=== PATIENT | female | born 1990 | race Caucasian/White ===

== ENCOUNTER 2017-02-14 17:38 | Inpatient (IN) | payer BC ==
[2017-02-14] MEDS ORDERED: Sodium Chloride 0.9% 10 ML Syringe FLUSH PRN (17:49)
[2017-02-14] MEDS ORDERED: Nalbuphine 20 MG/1 ML Amp IVPUSH PRN (17:49)
[2017-02-14] MEDS ORDERED: Ondansetron 4 MG/2 ML SDV IVPUSH PRN ×2 (17:49→19:46)
[2017-02-14] MEDS ORDERED: Lactated Ringers 1,000 ML IV SCH (18:00)
[2017-02-14] MEDS ORDERED: ePHEDrine 50 MG/ML SDV IVPUSH PRN (19:46)
[2017-02-14] MEDS ORDERED: fentaNYL 100 MCG/2 ML SDV EPIDUR PRN (19:46)
--- NOTE | 2017-02-14 19:48 | PCM.PREANE ---
Preanesthetic Assessment - Anesthesia/Transfusion/Family Hx Anesthesia History: Prior Anesthesia Without Reaction Family History of Anesthesia Reaction: No Transfusion History: No Prior Transfusion(s) Intubation History: Unknown - Review of Systems General: No Symptoms Pulmonary: No Symptoms Cardiovascular: No Symptoms Gastrointestinal: No Symptoms (gerd) Neurological: No Symptoms Other: Reports: None, Easy Bruising - Physical Assessment NPO Status Date: 02/14/17 NPO Status Time: 18:30 Pulse: 83 O2 Sat by Pulse Oximetry: 99 Respiratory Rate: 16 Blood Pressure: 139/83 Temperature: 36.7 C Vital Signs: Last Vital Signs Temp 36.7 C 02/14/17 17:49 Pulse 83 02/14/17 18:30 Resp 16 02/14/17 17:49 BP 139/83 02/14/17 18:30 Pulse Ox Height: 1.78 m Weight: 117.027 kg ASA Class: 2 Mental Status: Alert & Oriented x3 Airway Class: Mallampati = 2 Dentition: Reports: Normal Dentition, Caries Thyro-Mental Finger Breadths: 3 Mouth Opening Finger Breadths: 3 ROM/Head Extension: Full Lungs: Clear to Auscultation, Normal Respiratory Effort Cardiovascular: Regular Rate, Regular Rhythm, No Murmurs - Lab Values: Laboratory Last Values WBC 8.29 K/mm3 (3.98-10.04) 02/14/17 18:10 RBC 4.29 M/mm3 (3.98-5.22) 02/14/17 18:10 Hgb 12.5 gm/L (11.2-15.7) 02/14/17 18:10 Hct 36.7 % (34.1-44.9) 02/14/17 18:10 MCV 85.5 fl (79.4-94.8) 02/14/17 18:10 MCH 29.1 pg (25.6-32.2) 02/14/17 18:10 MCHC 34.1 g/dl (32.2-35.5) 02/14/17 18:10 RDW Std Deviation 42.6 fL (36.4-46.3) 02/14/17 18:10 Plt Count 238 K/mm3 (182-369) 02/14/17 18:10 MPV 11.2 fl (9.4-12.3) 02/14/17 18:10 Neut % (Auto) 62.6 % (34.0-71.1) 02/14/17 18:10 Lymph % (Auto) 26.8 % (19.3-51.7) 02/14/17 18:10 [place] % (Auto) 9.4 % (4.7-12.5) 02/14/17 18:10 Eos % (Auto) 0.7 (0.7-5.8) 02/14/17 18:10 Baso % (Auto) 0.1 % (0.1-1.2) 02/14/17 18:10 Neut # (Auto) 5.19 K/mm3 (1.56-6.13) 02/14/17 18:10 Lymph # (Auto) 2.22 K/mm3 (1.18-3.74) 02/14/17 18:10 [place] # (Auto) 0.78 K/mm3 (0.24-0.36) H 02/14/17 18:10 Eos # (Auto) 0.06 K/mm3 (0.04-0.36) 02/14/17 18:10 Baso # (Auto) 0.01 K/mm3 (0.01-0.08) 02/14/17 18:10 Above labs reviewed and noted. 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 History: Reports: Musculoskeletal History: Reports: Other (See Below) - Past Surgical History Musculoskeletal Surgical History: Reports: Other (See Below) Other Musculoskeletal Surgeries/Procedures:: left hand surgery following a fracture - SUBSTANCE USE Smoking Status *Q: Never Smoker Second Hand Smoke Exposure: No Recreational Drug Use History: No - HOME MEDS Home Medications: Home Meds Famotidine [Pepcid] 10 mg PO DAILY PRN 02/14/17 [History] Vit W-Ca,Fe,FA(<1 mg) [ Vitamins] 1 each PO DAILY 02/14/17 [ History] - CURRENT (IN HOUSE) MEDS Current Meds: Current Medications Lactated Ringer's (Ringers, Lactated) 1,000 mls @ 100 mls/hr IV ASDIRECTED TATUM Oxytocin 20 unit/ Lactated (Ringer's) 1,002 mls @ 500 mls/hr IV ASDIRECTED TATUM Nalbuphine HCl (Nubain) 10 mg IVPUSH Q2H PRN PRN Reason: Pain (moderate 4-6) Ondansetron HCl (Zofran) 4 mg IVPUSH Q4H PRN PRN Reason: Nausea/Vomiting Sodium Chloride (Saline Flush) 10 ml FLUSH ASDIRECTED PRN PRN Reason: Keep Vein Open
[2017-02-14] MEDS ORDERED: Bupivacaine/fentaNYL/NS 100 ML Bag EPIDUR SCH (20:00)
[2017-02-14] MEDS ORDERED: Oxytocin/Lactated Ringers 20 UNIT/1,000 ML BAG IV ONE (22:14)
[2017-02-14] MEDS ORDERED: Bupivacaine 0.25% 10 ML SDV ONE (22:22)
--- NOTE | 2017-02-14 23:49 | PCM.LDHP ---
L&D History of Present Illness - General Date of Service: 02/14/17 Admit Problem/Dx: Patient Status Order with Admit Dx/Problem 02/14/17 17:50 Patient Status [ADT] Routine Admission Diagnosis/Problem Admission Diagnosis/Problem Normal labor Source of Information: Patient History Limitations: Reports: No Limitations - History of Present Illness Introduction:: 26-year-old 001 JH 02/19/17 presented to labor and delivery with history of ruptured membranes at 1730 hrs. on 02/14/17 at 39 weeks and 2 days estimated gestational age. G group B strep negative. Blood type O-positive antibody screen negative hemoglobin hematocrit 13.4/38.9 platelets 298,000 rubella immune hepatitis B surface antigen -1 hour OB glucose screen 98 admitted for labor and delivery. 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: : 2 Para: 1 (1001) LMP (Approximate): Musculoskeletal History: Reports: Other (See Below) - Past Surgical History Musculoskeletal Surgical History: Reports: Other (See Below) Other Musculoskeletal Surgeries/Procedures:: left hand surgery following a fracture Social & Family History - Family History Family Medical History: Noncontributory - Tobacco Use Smoking Status *Q: Never Smoker Second Hand Smoke Exposure: No - Recreational Drug Use Recreational Drug Use: No H&P Review of Systems - Review of Systems: Review Of Systems: See Below General: Reports: No Symptoms HEENT: Reports: No Symptoms Pulmonary: Reports: No Symptoms Cardiovascular: Reports: No Symptoms Gastrointestinal: Reports: No Symptoms Genitourinary: Reports: No Symptoms Musculoskeletal: Reports: No Symptoms Skin: Reports: No Symptoms Psychiatric: Reports: No Symptoms Neurological: Reports: No Symptoms Hematologic/Lymphatic: Reports: No Symptoms Immunologic: Reports: No Symptoms L&D Exam - Exam Exam: See Below - Vital Signs Vital Signs: Last Vital Signs Temp 98.1 F 02/14/17 20:02 Pulse 83 02/14/17 20:02 Resp 16 02/14/17 20:02 BP 139/83 02/14/17 20:02 Pulse Ox 99 02/14/17 20:02 Weight: 258 lb - OB Specific Fundal Height In cm: 39 Contraction Duration (sec): 60 Contraction Frequency (min): 2 Contraction Intensity: Moderate Movement: Active Heart Tones: Present Heart Tones per Min: 140 Heart Rate (FHR) Variability: Moderate (6-25 bmp) Presentation: Vertex - Main Score Main Score Cervix Position: Posterior Main Score Consistency: Soft Main Score Effacement: 31-50% Main Score Dilation: 3-4 cm Main Score 's Station: -1 ,0 Main Score Total: 7 - Exam General: Alert, Oriented HEENT: Conjunctiva Clear, Mucosa Moist & [place], PERRLA Neck: Supple, Trachea Midline Lungs: Clear to Auscultation, Normal Respiratory Effort Cardiovascular: Regular Rate, Regular Rhythm GI/Abdominal Exam: Normal Bowel Sounds, Soft, Non-Tender, No Organomegaly, No Distention, No Abnormal Bruit Genitourinary: Normal external exam Extremities: Normal Inspection, Normal Range of Motion, Non-Tender, No Pedal Edema, Normal Capillary Refill Skin: Warm, Dry, Intact Neurological: Reflexes Equal Bilateral Psychiatric: Alert, Normal Affect, Normal Mood - Patient Data Lab Results Last 24 hrs: Laboratory Results - last 24 hr 02/14/17 Range/Units 18:10 WBC 8.29 (3.98-10.04) K/mm3 RBC 4.29 (3.98-5.22) M/mm3 Hgb 12.5 (11.2-15.7) gm/L Hct 36.7 (34.1-44.9) % MCV 85.5 (79.4-94.8) fl MCH 29.1 (25.6-32.2) pg MCHC 34.1 (32.2-35.5) g/dl RDW Std Deviation 42.6 (36.4-46.3) fL Plt Count 238 (182-369) K/mm3 MPV 11.2 (9.4-12.3) fl Neut % (Auto) 62.6 (34.0-71.1) % Lymph % (Auto) 26.8 (19.3-51.7) % [place] % (Auto) 9.4 (4.7-12.5) % Eos % (Auto) 0.7 (0.7-5.8) Baso % (Auto) 0.1 (0.1-1.2) % Neut # (Auto) 5.19 (1.56-6.13) K/mm3 Lymph # (Auto) 2.22 (1.18-3.74) K/mm3 [place] # (Auto) 0.78 H (0.24-0.36) K/mm3 Eos # (Auto) 0.06 (0.04-0.36) K/mm3 Baso # (Auto) 0.01 (0.01-0.08) K/mm3 Result Diagrams: 02/14/17 18:10 - Problem List (1) 39 weeks gestation of SNOMED Code(s): 88549126 ICD Code: Z3A.39 - 39 WEEKS GESTATION OF Status: Acute Current Visit: Yes Problem List Initiated/Reviewed/Updated: No Orders Last 24hrs: Active Orders 24 hr Category Date Time Status Patient Status [ADT] Routine ADT 02/14/17 17:50 Active Activity as Tolerated [RC] PFP Care 02/14/17 17:49 Active Communication Order [RC] ASDIRECTED Care 02/14/17 17:49 Active Notify Provider [RC] ASDIRECTED Care 02/14/17 19:46 Active Notify Provider [RC] PFP Care 02/14/17 17:49 Active Notify Provider [RC] PRN Care 02/14/17 17:49 Active Oxygen Therapy [RC] ASDIRECTED Care 02/14/17 19:46 Active Peripheral IV Care [RC] . DIRECTED Care 02/14/17 17:50 Active Pulse Oximetry [RC] ASDIRECTED Care 02/14/17 19:46 Active Vital Signs [RC] PER UNIT ROUTINE Care 02/14/17 17:49 Active Clear Liquid Diet [DIET] Diet 02/14/17 Breakfast Active Bupivacaine/fentaNYL/NS [fentaNYL/Bupivacaine/NS 2 MCG- Med 02/14/17 20:00 Active 0.125% 100 ML] 100 ml EPIDUR ASDIRECTED Lactated Ringers [Ringers, Lactated] 1,000 ml Med 02/14/17 18:00 Active IV ASDIRECTED Nalbuphine [Nubain] Med 02/14/17 17:49 Active 10 mg IVPUSH Q2H PRN Ondansetron [Zofran] Med 02/14/17 19:46 Active 4 mg IVPUSH ONETIME PRN Ondansetron [Zofran] Med 02/14/17 17:49 Active 4 mg IVPUSH Q4H PRN Oxytocin [Pitocin] 20 unit Med 02/14/17 18:00 Active Lactated Ringers [Ringers, Lactated] 1,000 ml IV ASDIRECTED Sodium Chloride 0.9% [Saline Flush] Med 02/14/17 17:49 Active 10 ml FLUSH ASDIRECTED PRN ePHEDrine [ePHEDrine Sulfate] Med 02/14/17 19:46 Active 5 mg IVPUSH ASDIRECTED PRN fentaNYL [Sublimaze] Med 02/14/17 19:46 Active 100 mcg EPIDUR Q3H PRN Electronic Heart Tones Ext w TOCO [WOMSER] Oth 02/14/17 17:49 Ordered Routine Electronic Heart Tones Internal [WOMSER] Per Unit Oth 02/14/17 17:49 Ordered Routine Peripheral IV Insertion Adult [OM.PC] Routine Oth 02/14/17 17:49 Ordered Resuscitation Status Routine Resus Stat 02/14/17 17:49 Ordered Medication Orders Ephedrine Sulfate (Ephedrine Sulfate) 5 mg IVPUSH ASDIRECTED PRN PRN Reason: Hypotension Fentanyl (Sublimaze) 100 mcg EPIDUR Q3H PRN PRN Reason: Pain Last Admin: 02/14/17 20:03 Dose: 100 mcg Fentanyl/Bupivacaine HCl (Fentanyl/Bupivacaine/Ns 2 Mcg-0.125% 100 Ml) 100 ml EPIDUR ASDIRECTED TATUM Last Admin: 02/14/17 20:03 Dose: 100 ml Lactated Ringer's (Ringers, Lactated) 1,000 mls @ 100 mls/hr IV ASDIRECTED TATUM Oxytocin 20 unit/ Lactated (Ringer's) 1,002 mls @ 500 mls/hr IV ASDIRECTED TATUM Nalbuphine HCl (Nubain) 10 mg IVPUSH Q2H PRN PRN Reason: Pain (moderate 4-6) Ondansetron HCl (Zofran) 4 mg IVPUSH Q4H PRN PRN Reason: Nausea/Vomiting Ondansetron HCl (Zofran) 4 mg IVPUSH ONETIME PRN PRN Reason: Nausea/Vomiting Sodium Chloride (Saline Flush) 10 ml FLUSH ASDIRECTED PRN PRN Reason: Keep Vein Open Assessment/Plan Comment:: Admit for labor and delivery.
--- NOTE | 2017-02-14 23:51 | PCM.DEL ---
L & D Note - General Info Date of Service: 02/14/17 Mother's Due Date: 02/19/17 - Delivery Note Labor: Spontaneous Delivery Outcome: Livebirth (Male liveborn Wednesday02/14/17 at 2326 hrs. CLARICE Apgars 8/9. Weight 4030 g/8 pounds 14.2 ounces.) Delivery Method: Spontaneous Vaginal Delivery-Single Infant Delivery Mode: Spontaneous Presentation: Right Occiput Anterior (CLARICE) Nuchal Cord: None Prep: Povidone-Iodine (Betadine Anesthesia Type: Epidural Episiotomy Type: None Laceration: 1st Degree (First-degree supra urethral pressure and silver nitrate not sutured) Placenta: Intact, Spontaneous Cord: 3 Vessels Estimated Blood Loss: 250 Resuscitation Needed: Yes [place]: Suctioned, Bulb Syringe, Stimulated, Warmed, [place] Used, Warmer Used Provider: Messi Farmer Score 1 min: 8 Score 5 min: 9 - Patient Data Vitals - Most Recent: Last Vital Signs Temp 98.1 F 02/14/17 20:02 Pulse 83 02/14/17 20:02 Resp 16 02/14/17 20:02 BP 139/83 02/14/17 20:02 Pulse Ox 99 02/14/17 20:02 Weight - Most Recent: 258 lb Lab Results Last 24 Hours: Laboratory Results - last 24 hr 02/14/17 Range/Units 18:10 WBC 8.29 (3.98-10.04) K/mm3 RBC 4.29 (3.98-5.22) M/mm3 Hgb 12.5 (11.2-15.7) gm/L Hct 36.7 (34.1-44.9) % MCV 85.5 (79.4-94.8) fl MCH 29.1 (25.6-32.2) pg MCHC 34.1 (32.2-35.5) g/dl RDW Std Deviation 42.6 (36.4-46.3) fL Plt Count 238 (182-369) K/mm3 MPV 11.2 (9.4-12.3) fl Neut % (Auto) 62.6 (34.0-71.1) % Lymph % (Auto) 26.8 (19.3-51.7) % [place] % (Auto) 9.4 (4.7-12.5) % Eos % (Auto) 0.7 (0.7-5.8) Baso % (Auto) 0.1 (0.1-1.2) % Neut # (Auto) 5.19 (1.56-6.13) K/mm3 Lymph # (Auto) 2.22 (1.18-3.74) K/mm3 [place] # (Auto) 0.78 H (0.24-0.36) K/mm3 Eos # (Auto) 0.06 (0.04-0.36) K/mm3 Baso # (Auto) 0.01 (0.01-0.08) K/mm3 Med Orders - Current: Current Medications Ephedrine Sulfate (Ephedrine Sulfate) 5 mg IVPUSH ASDIRECTED PRN PRN Reason: Hypotension Fentanyl (Sublimaze) 100 mcg EPIDUR Q3H PRN PRN Reason: Pain Last Admin: 02/14/17 20:03 Dose: 100 mcg Fentanyl/Bupivacaine HCl (Fentanyl/Bupivacaine/Ns 2 Mcg-0.125% 100 Ml) 100 ml EPIDUR ASDIRECTED TATUM Last Admin: 02/14/17 20:03 Dose: 100 ml Lactated Ringer's (Ringers, Lactated) 1,000 mls @ 100 mls/hr IV ASDIRECTED [facility] Oxytocin 20 unit/ Lactated (Ringer's) 1,002 mls @ 500 mls/hr IV ASDIRECTED [facility] Nalbuphine HCl (Nubain) 10 mg IVPUSH Q2H PRN PRN Reason: Pain (moderate 4-6) Ondansetron HCl (Zofran) 4 mg IVPUSH Q4H PRN PRN Reason: Nausea/Vomiting Ondansetron HCl (Zofran) 4 mg IVPUSH ONETIME PRN PRN Reason: Nausea/Vomiting Sodium Chloride (Saline Flush) 10 ml FLUSH ASDIRECTED PRN PRN Reason: Keep Vein Open Discontinued Medications Oxytocin/Lactated Ringer's (Pitocin In Lr 20 Units/1,000 Ml) Confirm Administered Dose 20 unit in 1,000 mls @ as directed IV .STK-MED ONE Stop: 02/14/17 22:15 - Problem List & Annotations (1) 39 weeks gestation of SNOMED Code(s): 51207841 Code(s): Z3A.39 - 39 WEEKS GESTATION OF Status: Acute Current Visit: Yes (2) First degree laceration of perineum, delivered, current hospitalization SNOMED Code(s): 108382289 Code(s): O70.0 - FIRST DEGREE PERINEAL LACERATION DURING DELIVERY Status: Acute Current Visit: Yes - Problem List Review Problem List Initiated/Reviewed/Updated: No - My Orders Last 24 Hours: My Active Orders 02/14/17 17:49 Activity as Tolerated [RC] PFP Communication Order [RC] ASDIRECTED Notify Provider [RC] PFP Notify Provider [RC] PRN Vital Signs [RC] PER UNIT ROUTINE Nalbuphine [Nubain] 10 mg IVPUSH Q2H PRN Ondansetron [Zofran] 4 mg IVPUSH Q4H PRN Sodium Chloride 0.9% [Saline Flush] 10 ml FLUSH ASDIRECTED PRN Electronic Heart Tones Ext w TOCO [WOMSER] Routine Electronic Heart Tones Internal [WOMSER] Per Unit Routine Peripheral IV Insertion Adult [OM.PC] Routine Resuscitation Status Routine 02/14/17 17:50 Patient Status [ADT] Routine Peripheral IV Care [RC] . DIRECTED 02/14/17 18:00 Lactated Ringers [Ringers, Lactated] 1,000 ml IV ASDIRECTED Oxytocin [Pitocin] 20 unit Lactated Ringers [Ringers, Lactated] 1,000 ml IV ASDIRECTED 02/14/17 Breakfast Clear Liquid Diet [DIET] - Plan Plan:: Admit for labor and delivery.
[2017-02-14] MEDS ORDERED: Benzocaine/Menthol 20%-0.5% Spray 56 GM Canister TOP PRN (23:56)
[2017-02-14] MEDS ORDERED: Simethicone 80 MG Tab.Chew PO PRN (23:56)
[2017-02-14] MEDS ORDERED: Famotidine 20 MG Tab PO PRN (23:56)
[2017-02-14] MEDS ORDERED: Witch Hazel Medicated Pads 100/Jar TOP PRN (23:56)
[2017-02-14] MEDS ORDERED: Docusate Sodium 100 MG Cap PO PRN (23:56)
[2017-02-14] MEDS ORDERED: Lanolin 100% Cream 7 GM Tube TOP PRN (23:56)
[2017-02-14] MEDS ORDERED: Acetaminophen/oxyCODONE 325-5 MG Tab PO PRN (23:56)
[2017-02-14] MEDS ORDERED: Acetaminophen 325 MG Tab PO PRN (23:56)
[2017-02-15] MEDS: Ibuprofen 600 MG Tab PO PRN ×2 (07:11→20:08)
--- NOTE | 2017-02-15 08:14 | PCM48HPAN ---
Post Anesthesia Note - EVALUATION WITHIN 48HRS OF ANESTHETIC Vital Signs in Normal Range: Yes Patient Participated in Evaluation: Yes Respiratory Function Stable: Yes Airway Patent: Yes Cardiovascular Function Stable: Yes Hydration Status Stable: Yes Pain Control Satisfactory: Yes Nausea and Vomiting Control Satisfactory: Yes Mental Status Recovered: Yes
--- NOTE | 2017-02-15 08:31 | PCM.SN ---
- Free Text/Narrative Note: day 1 patient delivered close to midnight last night doing well afebrile, no heavy vaginal bleeding, uterus involuting normally, no leg pain. Probably home tomorrow morning.
[2017-02-15] MEDS ORDERED: Prenatal Multivitamin with Calcium/Folic Acid/Iron Tab PO SCH (09:00)
--- NOTE | 2017-02-16 07:05 | PCM.DCSUM1 ---
Discharge Summary - Hospital Course Free Text/Narrative:: [facility] LIVE L/D Delivery Note Patient Name: OMAR BHANDARI Date of : 86 Patient Status: Inpatient Attending Provider: Messi Farmer Date: 02/14/17 23:49 Initialization Date: 02/14/17 23:49 L & D Note - General Info Date of Service: 02/14/17 Mother's Due Date: 02/19/17 - Delivery Note Labor: Spontaneous Delivery Outcome: Livebirth (Male liveborn Wednesday02/14/17 at 2326 hrs. CLARICE Apgars 8/9. Weight 4030 g/8 pounds 14.2 ounces.) Infant Delivery Method: Spontaneous Vaginal Delivery-Single Infant Delivery Mode: Spontaneous Presentation: Right Occiput Anterior (CLARICE) Nuchal Cord: None Prep: Povidone-Iodine (Betadine Anesthesia Type: Epidural Episiotomy Type: None Laceration: 1st Degree (First-degree supra urethral pressure and silver nitrate not sutured) Placenta: Intact, Spontaneous Cord: 3 Vessels Estimated Blood Loss: 250 Resuscitation Needed: Yes Briggs: Suctioned, Bulb Syringe, Stimulated, Warmed, [place] Used, Warmer Used Provider: Messi Farmer Score 1 min: 8 Score 5 min: 9 - Patient Data Vitals - Most Recent: Last Vital Signs Temp 98.1 F 02/14/17 20:02 Pulse 83 02/14/17 20:02 Resp 16 02/14/17 20:02 BP 139/83 02/14/17 20:02 Pulse Ox 99 02/14/17 20:02 Weight - Most Recent: 258 lb Lab Results Last 24 Hours: Laboratory Results - last 24 hr 02/14/17 Range/Units 18:10 WBC 8.29 (3.98-10.04) K/mm3 RBC 4.29 (3.98-5.22) M/mm3 Hgb 12.5 (11.2-15.7) gm/L Hct 36.7 (34.1-44.9) % MCV 85.5 (79.4-94.8) fl MCH 29.1 (25.6-32.2) pg MCHC 34.1 (32.2-35.5) g/dl RDW Std Deviation 42.6 (36.4-46.3) fL Plt Count 238 (182-369) K/mm3 MPV 11.2 (9.4-12.3) fl Neut % (Auto) 62.6 (34.0-71.1) % Lymph % (Auto) 26.8 (19.3-51.7) % [place] % (Auto) 9.4 (4.7-12.5) % Eos % (Auto) 0.7 (0.7-5.8) Baso % (Auto) 0.1 (0.1-1.2) % Neut # (Auto) 5.19 (1.56-6.13) K/mm3 Lymph # (Auto) 2.22 (1.18-3.74) K/mm3 [place] # (Auto) 0.78 H (0.24-0.36) K/mm3 Eos # (Auto) 0.06 (0.04-0.36) K/mm3 Baso # (Auto) 0.01 (0.01-0.08) K/mm3 Med Orders - Current: Current Medications Ephedrine Sulfate (Ephedrine Sulfate) 5 mg IVPUSH ASDIRECTED PRN PRN Reason: Hypotension Fentanyl (Sublimaze) 100 mcg EPIDUR Q3H PRN PRN Reason: Pain Last Admin: 02/14/17 20:03 Dose: 100 mcg Fentanyl/Bupivacaine HCl (Fentanyl/Bupivacaine/Ns 2 Mcg-0.125% 100 Ml) 100 ml EPIDUR ASDIRECTED [facility] Last Admin: 02/14/17 20:03 Dose: 100 ml Lactated Ringer's (Ringers, Lactated) 1,000 mls @ 100 mls/hr IV ASDIRECTED [facility] Oxytocin 20 unit/ Lactated (Ringer's) 1,002 mls @ 500 mls/hr IV ASDIRECTED [facility] Nalbuphine HCl (Nubain) 10 mg IVPUSH Q2H PRN PRN Reason: Pain (moderate 4-6) Ondansetron HCl (Zofran) 4 mg IVPUSH Q4H PRN PRN Reason: Nausea/Vomiting Ondansetron HCl (Zofran) 4 mg IVPUSH ONETIME PRN PRN Reason: Nausea/Vomiting Sodium Chloride (Saline Flush) 10 ml FLUSH ASDIRECTED PRN PRN Reason: Keep Vein Open Discontinued Medications Oxytocin/Lactated Ringer's (Pitocin In Lr 20 Units/1,000 Ml) Confirm Administered Dose 20 unit in 1,000 mls @ as directed IV .STK-MED ONE Stop: 02/14/17 22:15 - Problem List & Annotations (1) 39 weeks gestation of SNOMED Code(s): 29664328 Code(s): Z3A.39 - 39 WEEKS GESTATION OF Status: Acute Current Visit: Yes (2) First degree laceration of perineum, delivered, current hospitalization SNOMED Code(s): 346642739 Code(s): O70.0 - FIRST DEGREE PERINEAL LACERATION DURING DELIVERY Status: Acute Current Visit: Yes - Problem List Review Problem List Initiated/Reviewed/Updated: No - My Orders Last 24 Hours: My Active Orders 02/14/17 17:49 Activity as Tolerated [RC] PFP Communication Order [RC] ASDIRECTED Notify Provider [RC] PFP Notify Provider [RC] PRN Vital Signs [RC] PER UNIT ROUTINE Nalbuphine [Nubain] 10 mg IVPUSH Q2H PRN Ondansetron [Zofran] 4 mg IVPUSH Q4H PRN Sodium Chloride 0.9% [Saline Flush] 10 ml FLUSH ASDIRECTED PRN Electronic Heart Tones Ext w TOCO [WOMSER] Routine Electronic Heart Tones Internal [WOMSER] Per Unit Routine Peripheral IV Insertion Adult [OM.PC] Routine Resuscitation Status Routine 02/14/17 17:50 Patient Status [ADT] Routine Peripheral IV Care [RC] . DIRECTED 02/14/17 18:00 Lactated Ringers [Ringers, Lactated] 1,000 ml IV ASDIRECTED Oxytocin [Pitocin] 20 unit Lactated Ringers [Ringers, Lactated] 1,000 ml IV ASDIRECTED 02/14/17 Breakfast Clear Liquid Diet [DIET] - Plan Plan:: Admit for labor and delivery. HPI Initial Comments: [facility] LIVE L/D Delivery Note Patient Name: OMAR BHANDARI Date of : 86 Patient Status: Inpatient Attending Provider: Messi Farmer Date: 02/14/17 23:49 Initialization Date: 02/14/17 23:49 L & D Note - General Info Date of Service: 02/14/17 Mother's Due Date: 02/19/17 - Delivery Note Labor: Spontaneous Delivery Outcome: Livebirth (Male liveborn Wednesday02/14/17 at 2326 hrs. CLARICE Apgars 8/9. Weight 4030 g/8 pounds 14.2 ounces.) Infant Delivery Method: Spontaneous Vaginal Delivery-Single Infant Delivery Mode: Spontaneous Presentation: Right Occiput Anterior (CLARICE) Nuchal Cord: None Prep: Povidone-Iodine (Betadine Anesthesia Type: Epidural Episiotomy Type: None Laceration: 1st Degree (First-degree supra urethral pressure and silver nitrate not sutured) Placenta: Intact, Spontaneous Cord: 3 Vessels Estimated Blood Loss: 250 Resuscitation Needed: Yes Briggs: Suctioned, Bulb Syringe, Stimulated, Warmed, [place] Used, Warmer Used Provider: Messi Farmer Score 1 min: 8 Score 5 min: 9 - Patient Data Vitals - Most Recent: Last Vital Signs Temp 98.1 F 02/14/17 20:02 Pulse 83 02/14/17 20:02 Resp 16 02/14/17 20:02 BP 139/83 02/14/17 20:02 Pulse Ox 99 02/14/17 20:02 Weight - Most Recent: 258 lb Lab Results Last 24 Hours: Laboratory Results - last 24 hr 02/14/17 Range/Units 18:10 WBC 8.29 (3.98-10.04) K/mm3 RBC 4.29 (3.98-5.22) M/mm3 Hgb 12.5 (11.2-15.7) gm/L Hct 36.7 (34.1-44.9) % MCV 85.5 (79.4-94.8) fl MCH 29.1 (25.6-32.2) pg MCHC 34.1 (32.2-35.5) g/dl RDW Std Deviation 42.6 (36.4-46.3) fL Plt Count 238 (182-369) K/mm3 MPV 11.2 (9.4-12.3) fl Neut % (Auto) 62.6 (34.0-71.1) % Lymph % (Auto) 26.8 (19.3-51.7) % [place] % (Auto) 9.4 (4.7-12.5) % Eos % (Auto) 0.7 (0.7-5.8) Baso % (Auto) 0.1 (0.1-1.2) % Neut # (Auto) 5.19 (1.56-6.13) K/mm3 Lymph # (Auto) 2.22 (1.18-3.74) K/mm3 [place] # (Auto) 0.78 H (0.24-0.36) K/mm3 Eos # (Auto) 0.06 (0.04-0.36) K/mm3 Baso # (Auto) 0.01 (0.01-0.08) K/mm3 Med Orders - Current: Current Medications Ephedrine Sulfate (Ephedrine Sulfate) 5 mg IVPUSH ASDIRECTED PRN PRN Reason: Hypotension Fentanyl (Sublimaze) 100 mcg EPIDUR Q3H PRN PRN Reason: Pain Last Admin: 02/14/17 20:03 Dose: 100 mcg Fentanyl/Bupivacaine HCl (Fentanyl/Bupivacaine/Ns 2 Mcg-0.125% 100 Ml) 100 ml EPIDUR ASDIRECTED [facility] Last Admin: 02/14/17 20:03 Dose: 100 ml Lactated Ringer's (Ringers, Lactated) 1,000 mls @ 100 mls/hr IV ASDIRECTED [facility] Oxytocin 20 unit/ Lactated (Ringer's) 1,002 mls @ 500 mls/hr IV ASDIRECTED [facility] Nalbuphine HCl (Nubain) 10 mg IVPUSH Q2H PRN PRN Reason: Pain (moderate 4-6) Ondansetron HCl (Zofran) 4 mg IVPUSH Q4H PRN PRN Reason: Nausea/Vomiting Ondansetron HCl (Zofran) 4 mg IVPUSH ONETIME PRN PRN Reason: Nausea/Vomiting Sodium Chloride (Saline Flush) 10 ml FLUSH ASDIRECTED PRN PRN Reason: Keep Vein Open Discontinued Medications Oxytocin/Lactated Ringer's (Pitocin In Lr 20 Units/1,000 Ml) Confirm Administered Dose 20 unit in 1,000 mls @ as directed IV .STK-MED ONE Stop: 02/14/17 22:15 - Problem List & Annotations (1) 39 weeks gestation of SNOMED Code(s): 67451402 Code(s): Z3A.39 - 39 WEEKS GESTATION OF Status: Acute Current Visit: Yes (2) First degree laceration of perineum, delivered, current hospitalization SNOMED Code(s): 289804350 Code(s): O70.0 - FIRST DEGREE PERINEAL LACERATION DURING DELIVERY Status: Acute Current Visit: Yes - Problem List Review Problem List Initiated/Reviewed/Updated: No - My Orders Last 24 Hours: My Active Orders 02/14/17 17:49 Activity as Tolerated [RC] PFP Communication Order [RC] ASDIRECTED Notify Provider [RC] PFP Notify Provider [RC] PRN Vital Signs [RC] PER UNIT ROUTINE Nalbuphine [Nubain] 10 mg IVPUSH Q2H PRN Ondansetron [Zofran] 4 mg IVPUSH Q4H PRN Sodium Chloride 0.9% [Saline Flush] 10 ml FLUSH ASDIRECTED PRN Electronic Heart Tones Ext w TOCO [WOMSER] Routine Electronic Heart Tones Internal [WOMSER] Per Unit Routine Peripheral IV Insertion Adult [OM.PC] Routine Resuscitation Status Routine 02/14/17 17:50 Patient Status [ADT] Routine Peripheral IV Care [RC] . DIRECTED 02/14/17 18:00 Lactated Ringers [Ringers, Lactated] 1,000 ml IV ASDIRECTED Oxytocin [Pitocin] 20 unit Lactated Ringers [Ringers, Lactated] 1,000 ml IV ASDIRECTED 02/14/17 Breakfast Clear Liquid Diet [DIET] - Plan Plan:: Admit for labor and delivery. Brief History: [facility] LIVE . L/D Delivery Note. Patient Name: OMAR BHANDARI Record Number: [id number]. Date of : Patient Status: Inpatient. Attending Provider: Messi Farmer Number: [id number]. Date: 02/14/17 23:49Initialization Date: 02/14/17 23:49. L & D Note. - General Info. Date of Service: 02/14/17. Mother's Due Date: 02/19/17. - Delivery Note. Labor: Spontaneous. Delivery Outcome: Livebirth ( Male liveborn Wednesday02/14/17 at 2326 hrs. CLARICE Apgars 8/9. Weight 4030 g/8 pounds 14.2 ounces.). Delivery Method: Spontaneous Vaginal Delivery- Single. Infant Delivery Mode: Spontaneous. Presentation: Right Occiput Anterior (CLARICE). Nuchal Cord: None. Prep: Povidone-Iodine (Betadine. Anesthesia Type: Epidural. Episiotomy Type: None. Laceration: 1st Degree ( First-degree supra urethral pressure and silver nitrate not sutured). Placenta : Intact, Spontaneous. Cord: 3 Vessels. Estimated Blood Loss: 250. Resuscitation Needed: Yes. Briggs: Suctioned, Bulb Syringe, Stimulated, Warmed , [place] Used, Warmer Used. Provider: Messi Farmer. Score 1 min: 8. Score 5 min: 9. - Patient Data. Vitals - Most Recent: Last Vital Signs. Temp 98.1 F 02/14/17 20:02. Pulse 83 02/14/17 20:02. Resp 16 02/14/17 20:02. BP 139/83 02/14/17 20:02. Pulse Ox 99 02/14/17 20: 02. Weight - Most Recent: 258 lb. Lab Results Last 24 Hours: Laboratory Results - last 24 hr. 02/14/17Range/Units. 18:10. WBC 8.29 (3.98-10.04) K/ mm3. RBC 4.29 (3.98-5.22) M/mm3. Hgb 12.5 (11.2-15.7) gm/L. Hct 36.7 (34.1- 44.9) %. MCV 85.5 (79.4-94.8) fl. MCH 29.1 (25.6-32.2) pg. MCHC 34.1 (32.2 -35.5) g/dl. RDW Std Deviation 42.6 (36.4-46.3) fL. Plt Count 238 (182-369) K/mm3. MPV 11.2 (9.4-12.3) fl. Neut % (Auto) 62.6 (34.0-71.1) %. Lymph % (Auto) 26.8 (19.3-51.7) %. [place] % (Auto) 9.4 (4.7-12.5) %. Eos % (Auto) 0.7 (0.7-5.8). Baso % (Auto) 0.1 (0.1-1.2) %. Neut # (Auto) 5.19 (1.56-6.13) K/ mm3. Lymph # (Auto) 2.22 (1.18-3.74) K/mm3. [place] # (Auto) 0.78 H (0.24-0.36) K/mm3. Eos # (Auto) 0.06 (0.04-0.36) K/mm3. Baso # (Auto) 0.01 (0.01-0.08) K/mm3. Med Orders - Current: Current Medications. Ephedrine Sulfate ( Ephedrine Sulfate) 5 mg IVPUSH ASDIRECTED PRN. PRN Reason: Hypotension. Fentanyl (Sublimaze) 100 mcg EPIDUR Q3H PRN. PRN Reason: Pain. Last Admin: 20:03 Dose: 100 mcg. Fentanyl/Bupivacaine HCl (Fentanyl/Bupivacaine/Ns 2 Mcg-0.125% 100 Ml) 100 ml EPIDUR ASDIRECTED [facility]. Last Admin: 02/14/17 20:03 Dose: 100 ml. Lactated Ringer's (Ringers, Lactated) 1,000 mls @ 100 mls/hr IV ASDIRECTED [facility]. Oxytocin 20 unit/ Lactated (Ringer's) 1,002 mls @ 500 mls/ hr IV ASDIRECTED [facility]. Nalbuphine HCl (Nubain) 10 mg IVPUSH Q2H PRN. PRN Reason: Pain (moderate 4-6). Ondansetron HCl (Zofran) 4 mg IVPUSH Q4H PRN. PRN Reason: Nausea/Vomiting. Ondansetron HCl (Zofran) 4 mg IVPUSH ONETIME PRN. PRN Reason: Nausea/Vomiting. Sodium Chloride (Saline Flush) 10 ml FLUSH ASDIRECTED PRN. PRN Reason: Keep Vein Open. Discontinued Medications. Oxytocin/Lactated Ringer's (Pitocin In Lr 20 Units/1,000 Ml) Confirm Administered Dose 20 unit in 1,000 mls @ as directed IV .STK-MED ONE. Stop: 08/26 22:15. - Problem List & Annotations. (1) 39 weeks gestation of . SNOMED Code(s): 01506927. Code(s): Z3A.39 - 39 WEEKS GESTATION OF Status: Acute Current Visit: Yes. (2) First degree laceration of perineum, delivered, current hospitalization. SNOMED Code(s): 173150282. Code( s): O70.0 - FIRST DEGREE PERINEAL LACERATION DURING DELIVERY Status: Acute Current Visit: Yes. - Problem List Review. Problem List Initiated/Reviewed/ Updated: No. - My Orders. Last 24 Hours: My Active Orders. 02/14/17 17:49. Activity as Tolerated [RC] PFP. Communication Order [RC] ASDIRECTED. Notify Provider [RC] PFP. Notify Provider [RC] PRN. Vital Signs [RC] PER UNIT ROUTINE. Nalbuphine [Nubain] 10 mg IVPUSH Q2H PRN. Ondansetron [Zofran] 4 mg IVPUSH Q4H PRN. Sodium Chloride 0.9% [Saline Flush] 10 ml FLUSH ASDIRECTED PRN. Electronic Heart Tones Ext w TOCO [WOMSER] Routine. Electronic Heart Tones Internal [WOMSER] Per Unit Routine. Peripheral IV Insertion Adult [OM.PC] Routine. Resuscitation Status Routine. 02/14/17 17: 50. Patient Status [ADT] Routine. Peripheral IV Care [RC] . DIRECTED. 02/14 18:00. Lactated Ringers [Ringers, Lactated] 1,000 ml IV ASDIRECTED. Oxytocin [Pitocin] 20 unit Lactated Ringers [Ringers, Lactated] 1,000 ml IV ASDIRECTED. 02/14/17 Breakfast. Clear Liquid Diet [DIET]. - Plan. Plan:: Admit for labor and delivery. - Discharge Data Discharge Date: 02/16/17 Discharge Disposition: Home, Self-Care 01 Condition: Good - Discharge Diagnosis/Problem(s) (1) 39 weeks gestation of SNOMED Code(s): 33129516 ICD Code: Z3A.39 - 39 WEEKS GESTATION OF Status: Acute Current Visit: Yes (2) First degree laceration of perineum, delivered, current hospitalization SNOMED Code(s): 730719808 ICD Code: O70.0 - FIRST DEGREE PERINEAL LACERATION DURING DELIVERY Status: Acute Current Visit: Yes - Patient Summary/Data Complications: None Consults: None Hospital Course: Uneventful - Patient Instructions Diet: Regular Diet as Tolerated Driving: Do Not Drive (48 hours) Showering/Bathing: May Shower Notify Provider of: Fever, Increased Pain, Swelling and Redness, Drainage, Nausea and/or Vomiting - Discharge Plan Home Medications: Home Meds Vit W-Ca,Fe,FA(<1 mg) [ Vitamins] 1 each PO DAILY 02/14/17 [ History] Acetaminophen [Tylenol] 650 mg PO Q6H PRN tablet 02/16/17 [Rx] Benzocaine/Menthol [Dermoplast Pain Relief [place]] 1 spray TOP ASDIRECTED PRN canister 02/16/17 [Rx] Docusate Sodium [Colace] 100 mg PO BID PRN cap 02/16/17 [Rx] Ibuprofen [IJD: Ibuprofen] 600 mg PO Q6H PRN tablet 02/16/17 [Rx] Lanolin [Lansinoh HPA] 1 applic TOP ASDIRECTED PRN tube 02/16/17 [Rx] Referrals: Nelly Saldana MD [Physician] - (6 weeks) - Discharge Summary/Plan Comment DC Time >30 min.: No - Patient Data Vitals - Most Recent: Last Vital Signs Temp 97.0 F 02/16/17 05:36 Pulse 75 02/15/17 20:09 Resp 14 02/16/17 05:36 BP 107/69 02/16/17 05:36 Pulse Ox 97 02/15/17 20:09 Weight - Most Recent: 258 lb Lab Results - Last 24 hrs: Laboratory Results - last 24 hr 02/15/17 Range/Units 06:55 WBC 10.44 H (3.98-10.04) K/mm3 RBC 3.79 L (3.98-5.22) M/mm3 Hgb 11.1 L (11.2-15.7) gm/L Hct 32.5 L (34.1-44.9) % MCV 85.8 (79.4-94.8) fl MCH 29.3 (25.6-32.2) pg MCHC 34.2 (32.2-35.5) g/dl RDW Std Deviation 42.9 (36.4-46.3) fL Plt Count 219 (182-369) K/mm3 MPV 10.9 (9.4-12.3) fl Neut % (Auto) 71.9 H (34.0-71.1) % Lymph % (Auto) 19.3 (19.3-51.7) % [place] % (Auto) 8.0 (4.7-12.5) % Eos % (Auto) 0.2 L (0.7-5.8) Baso % (Auto) 0.2 (0.1-1.2) % Neut # (Auto) 7.52 H (1.56-6.13) K/mm3 Lymph # (Auto) 2.01 (1.18-3.74) K/mm3 [place] # (Auto) 0.83 H (0.24-0.36) K/mm3 Eos # (Auto) 0.02 L (0.04-0.36) K/mm3 Baso # (Auto) 0.02 (0.01-0.08) K/mm3 Med Orders - Current: Current Medications Acetaminophen (Tylenol) 650 mg PO Q4H PRN PRN Reason: mild pain or fever Benzocaine/Menthol (Dermoplast Pain Relief [place]) 0 gm TOP ASDIRECTED PRN PRN Reason: Perineal Comfort Measure Last Admin: 02/15/17 01:53 Dose: 1 applic Docusate Sodium (Colace) 100 mg PO BID PRN PRN Reason: Constipation Emollient Ointment (Lansinoh Hpa) 0 gm TOP ASDIRECTED PRN PRN Reason: Sore Nipples Famotidine (Pepcid) 20 mg PO BID PRN PRN Reason: Heartburn Ibuprofen (Motrin) 600 mg PO Q4H PRN PRN Reason: Mild pain or fever Last Admin: 02/15/17 20:08 Dose: 600 mg Oxycodone/Acetaminophen (Percocet 325-5 Mg) 2 tab PO Q4H PRN PRN Reason: Pain (moderate 4-6) Prenat Multivit/[place]/Iron/Folic Ac ( Plus Iron) 1 each PO DAILY TATUM Last Admin: 02/15/17 09:50 Dose: 1 each Simethicone (Simethicone) 80 mg PO Q4H PRN PRN Reason: Gas Witch Cathy (Tucks) 1 pad TOP ASDIRECTED PRN PRN Reason: Hemorrhoid pain Last Admin: 02/15/17 01:52 Dose: 1 applic Discontinued Medications Bupivacaine HCl (Sensorcaine-Mpf 0.25%) 10 ml .ROUTE .STK-MED ONE Stop: 02/14/17 22:23 Ephedrine Sulfate (Ephedrine Sulfate) 5 mg IVPUSH ASDIRECTED PRN PRN Reason: Hypotension Fentanyl (Sublimaze) 100 mcg EPIDUR Q3H PRN PRN Reason: Pain Last Admin: 02/14/17 20:03 Dose: 100 mcg Fentanyl/Bupivacaine HCl (Fentanyl/Bupivacaine/Ns 2 Mcg-0.125% 100 Ml) 100 ml EPIDUR ASDIRECTED [facility] Last Admin: 02/14/17 20:03 Dose: 100 ml Lactated Ringer's (Ringers, Lactated) 1,000 mls @ 100 mls/hr IV ASDIRECTED [facility] Oxytocin 20 unit/ Lactated (Ringer's) 1,002 mls @ 500 mls/hr IV ASDIRECTED [facility] Last Admin: 02/15/17 01:53 Dose: 500 mls/hr Oxytocin/Lactated Ringer's (Pitocin In Lr 20 Units/1,000 Ml) Confirm Administered Dose 20 unit in 1,000 mls @ as directed IV .Acopio-MED ONE Stop: 02/14/17 22:15 Last Admin: 02/15/17 02:18 Dose: Not Given Nalbuphine HCl (Nubain) 10 mg IVPUSH Q2H PRN PRN Reason: Pain (moderate 4-6) Ondansetron HCl (Zofran) 4 mg IVPUSH Q4H PRN PRN Reason: Nausea/Vomiting Ondansetron HCl (Zofran) 4 mg IVPUSH ONETIME PRN PRN Reason: Nausea/Vomiting Sodium Chloride (Saline Flush) 10 ml FLUSH ASDIRECTED PRN PRN Reason: Keep Vein Open *Q Meaningful Use (DIS) - VTE *Q VTE Criteria *Q: - Stroke *Q Stroke Criteria *Q: - AMI *Q AMI Criteria *Q:
== END 2017-02-16 09:20 | disposition home or self-care (01) | DRG 560 ==
LOC: JD.OB 17:38 → JD.OBCHECK 17:38 → JD.OB 17:50 → OBSVTOIN 23:26
PROVIDERS: ADMIT Obstetrics & Gynecology; ATTEND Obstetrics & Gynecology
PROC: 10E0XZZ Delivery of Products of Conception, External Approach (ICD-10-PCS; principal; 2017-02-14)
PROC: 00HU33Z Insertion of Infusion Device into Spinal Canal, Percutaneous Approach (ICD-10-PCS; 2017-02-14)
PROC: 3E0R3BZ Introduction of Anesthetic Agent into Spinal Canal, Percutaneous Approach (ICD-10-PCS; 2017-02-14)
DX: O42.02 Full-term premature rupture of membranes, onset of labor within 24 hours of rupture (principal); Z3A.39 39 weeks gestation of pregnancy; Z37.0 Single live birth; O70.0 First degree perineal laceration during delivery
CPT/HCPCS: 36415; 51702; 59409; 85025; A9270-GY; J2590; J3010; J7120